=== PATIENT | male | born 1965 | race Caucasian/White ===

== ENCOUNTER 2022-02-08 12:46 | Day surgery (SDC) | payer MEDICAID ==
[~2022-02-08] VITALS: Ht 170.2 cm; Wt 86.0 kg
[2022-02-08] MEDS ORDERED: CIPROFLOXACIN 0.3% OPHTH SOLN 2.5ML ONE (12:51)
[2022-02-08] MEDS ORDERED: TETRACAINE 0.5% OPHTH DROPS 4ML ONE (12:51)
[2022-02-08] MEDS ORDERED: BALANCED SALT IRRIG SOLN 15ML ONE (12:51)
[2022-02-08] MEDS ORDERED: PREDNISOLONE ACETATE 1% OPHTH DROPS 5ML ONE (12:51)
[2022-02-08] MEDS ORDERED: NEO/POLYMYX B SULF/DEXAMETH OPHTH OINT 3.5GM ONE (12:51)
[2022-02-08] MEDS ORDERED: LIDOCAINE HCL 2%/EPINEPHRINE 1:100,000 20 ML VIAL INFIL ONE (12:51)
[2022-02-08] MEDS ORDERED: BUPIVACAINE HCL/PF 0.75% (7.5MG/ML) 10ML ONE (12:51)
[2022-02-08] MEDS ORDERED: ONDANSETRON HCL 4MG/2ML INJ IV STA (15:43)
[2022-02-08] MEDS ORDERED: MORPHINE SULFATE 4 MG/ML CPJ (NOT FOR IM USE) IV STA (15:43)
[2022-02-08] MEDS ORDERED: TETRACAINE 0.5% OPHTH DROPS 4ML RIGHTEYE ONE (15:45)
[2022-02-08] MEDS ORDERED: ACETAZOLAMIDE SODIUM 500MG/VIAL IV ONE (15:45)
[2022-02-08] MEDS ORDERED: SODIUM CHLORIDE 0.9% 1,000 ML IV ONE (15:45)
[2022-02-08 15:53] LABS: BASOPHILS % 0.8 % (0.0-2.0); EOSINOPHILS % 3.6 % (0.0-5.0); HEMATOCRIT. 42.4 % (42.0-52.0); HEMOGLOBIN. 14.4 g/dL (14.0-18.0); LYMPHOCYTES % 26.3 % (20.0-50.0); MEAN CORPUSCULAR HEMOGLOBIN 29.8 pg (28.0-32.0); MEAN CORPUSCULAR VOLUME 87.7 fL (80.0-94.0); MONOCYTES % 5.2 % (2.0-8.0); NEUTROPHILS % 64.1 % (40.0-76.0); PLATELET 339 x1000/uL (130-400); RED BLOOD CELL COUNT 4.84 mill/uL (4.7-6.1)
[2022-02-08 16:13] LABS: CHLORIDE 113 mEq/L (98-107)
[2022-02-08 17:21] VITALS: BP 148/83
[2022-02-08] MEDS ORDERED: TETRACAINE 0.5% OPHTH DROPS 4ML RIGHTEYE NR (17:30)
[2022-02-08] MEDS ORDERED: LIDOCAINE HCL 1% 20ML VIAL (Pyxis) INJ ONE (18:41)
[2022-02-08] MEDS ORDERED: PROPOFOL 200MG/20ML VIAL IV ONE (18:41)
[2022-02-08] MEDS ORDERED: MIDAZOLAM HCL 2 MG/2 ML VIAL ONE (18:42)
[2022-02-08] MEDS ORDERED: FENTANYL CITRATE/PF 50MCG/ML 2ML VIAL ONE (18:42)
[2022-02-08] MEDS ORDERED: HYDROMORPHONE HCL/PF 2MG/ML CPJ IV PRN (19:45)
[2022-02-08] MEDS ORDERED: MEPERIDINE HCL/PF 25MG/ML CPJ IV PRN (19:45)
[2022-02-08] MEDS ORDERED: ONDANSETRON HCL 4MG/2ML INJ IV PRN (19:45)
[2022-02-08] MEDS ORDERED: LABETALOL 5MG/ML SYR 20 MG/4 ML SYRINGE IV PRN (19:45)
[2022-02-08] MEDS ORDERED: TIMOLOL MALEATE 0.5% OPHTH DROPS 5ML RIGHTEYE SCH (21:00)
== END 2022-02-08 21:00 | disposition home or self-care (01) ==
LOC: ER 12:46 → EDBEDREQTM 15:50 → EDBEDREQ 15:50 → EDBEDREQSVC 15:50 → ER 18:15 → OR 18:40 → ENRESERV 20:06 → OR 21:00 → UNDOADMIN 02-09 04:58 → 6EST 02-09 04:58
PROVIDERS: ATTEND Ophthalmology
DX: E11.39 Type 2 diabetes mellitus with other diabetic ophthalmic complication (principal); H40.89 Other specified glaucoma; I10 Essential (primary) hypertension; Z79.84 Long term (current) use of oral hypoglycemic drugs; Z79.899 Other long term (current) drug therapy; Z98.890 Other specified postprocedural states; Z20.822 Contact with and (suspected) exposure to COVID-19
CPT/HCPCS: 36415; 66180; 80053; 85025; 87426; 93005; 99285; C9803; J1120; J2250; J2270; J2405; J2704; J3010; J3490; J7030; C1762; C1783

== ENCOUNTER 2022-05-31 12:32 | Day surgery (SDC) | payer MEDICAID, OTHER ==
[~2022-05-31] VITALS: Ht 172.7 cm; Wt 91.0 kg
[2022-05-31 13:57] LABS: BASOPHILS % 0.6 % (0.0-2.0); EOSINOPHILS % 4.4 % (0.0-5.0); HEMATOCRIT. 43.6 % (42.0-52.0); HEMOGLOBIN. 14.9 g/dL (14.0-18.0); LYMPHOCYTES % 33.8 % (20.0-50.0); MEAN CORPUSCULAR HEMOGLOBIN 30.4 pg (28.0-32.0); MEAN CORPUSCULAR VOLUME 89.1 fL (80.0-94.0); MEAN PLATELET VOLUME 8.7 fl (7.4-10.4); MONOCYTES % 9.2 % (2.0-8.0); PLATELET 221 x1000/uL (130-400); RED CELL DISTRIBUTION WIDTH 13.2 % (11.6-14.6)
[2022-05-31 14:04] LABS: CHLORIDE 106 mEq/L (98-107)
[2022-05-31 14:59] LABS: CLARITY URINE CLEAR (CLEAR); COLOR URINE YELLOW (YELLOW); KETONES URINE NEGATIVE (NEGATIVE); LEUKOCYTE ESTERASE URINE NEGATIVE (NEGATIVE); NITRITE URINE NEGATIVE (NEGATIVE); OCCULT BLOOD URINE TRACE (NEGATIVE); PH URINE 5.5 (4.5-8.0); PROTEIN URINE 3+ (NEGATIVE); SPECIFIC GRAVITY URINE 1.036 (1.005-1.030); UROBILINOGEN URINE 0.2 E.U./dL (0.2-1.0)
[2022-05-31] MEDS ORDERED: BALANCED SALT IRRIG SOLN COMB1 500ML OP NR (15:00)
[2022-05-31 15:42] VITALS: BP 139/74
[2022-05-31] MEDS ORDERED: PROPOFOL 200MG/20ML VIAL IV ONE (17:15)
[2022-05-31] MEDS ORDERED: MIDAZOLAM HCL 2 MG/2 ML VIAL ONE (17:21)
[2022-05-31] MEDS ORDERED: FENTANYL CITRATE/PF 50MCG/ML 2ML VIAL IV PRN (17:30)
[2022-05-31] MEDS ORDERED: FENTANYL CITRATE/PF 50MCG/ML 2ML VIAL ONE (17:32)
[2022-05-31] MEDS ORDERED: DEXAMETHASONE 4MG/ML 1ML VIAL ONE (17:48)
[2022-05-31] MEDS ORDERED: CEFAZOLIN SODIUM 1000MG/VIAL ONE (17:48)
[2022-05-31] MEDS ORDERED: HYDRALAZINE 20MG/ML VIAL ONE (17:48)
[2022-05-31] MEDS ORDERED: ONDANSETRON HCL 4MG/2ML INJ ONE (17:48)
[2022-05-31] MEDS ORDERED: TRIAMCINOLONE ACETONIDE 40MG/ML 1ML VIAL ONE (18:13)
== END 2022-05-31 19:50 | disposition home or self-care (01) ==
LOC: ER 12:55 → 6EST 16:03 → UNDOADMIN 16:03 → OR 17:14 → ENRESERV 20:17
PROVIDERS: ATTEND Ophthalmology
DX: T85.698A Other mechanical complication of other specified internal prosthetic devices, implants and grafts, initial encounter (principal); H53.8 Other visual disturbances; I10 Essential (primary) hypertension; E11.9 Type 2 diabetes mellitus without complications; Z79.84 Long term (current) use of oral hypoglycemic drugs; Z79.899 Other long term (current) drug therapy; Z98.890 Other specified postprocedural states; Z20.822 Contact with and (suspected) exposure to COVID-19; X58.XXXA Exposure to other specified factors, initial encounter; Y93.89 Activity, other specified; Y92.89 Other specified places as the place of occurrence of the external cause; Y99.8 Other external cause status
CPT/HCPCS: 36415; 66180; 71045; 80053; 81003; 85025; 86850; 86900; 86901; 87426; 93005; 99285; C9803; J0360; J0690; J1100; J2250; J2405; J2704; J3010; J3301; J7030; C1762

== ENCOUNTER 2022-08-19 13:32 | Day surgery (SDC) | payer MEDICAID, OTHER ==
[~2022-08-19] VITALS: Ht 170.2 cm; Wt 87.0 kg
[~2022-08-19 13:32] MED LIST: BALANCED SALT IRRIG SOLN 15ML ONE; BUPIVACAINE HCL/PF 0.75% (7.5MG/ML) 10ML ONE; CIPROFLOXACIN 0.3% OPHTH SOLN 2.5ML ONE; LIDOCAINE HCL/PF 2% 20 MG/ML 10ML VIAL ONE; NEO/POLYMYX B SULF/DEXAMETH OPHTH OINT 3.5GM ONE; PREDNISOLONE ACETATE 1% OPHTH DROPS 5ML ONE; TETRACAINE 0.5% OPHTH DROPS 4ML ONE
[2022-08-19 16:49] LABS: BASOPHILS % 0.6 % (0.0-2.0); EOSINOPHILS % 4.5 % (0.0-5.0); HEMATOCRIT. 48.2 % (42.0-52.0); HEMOGLOBIN. 15.9 g/dL (14.0-18.0); LYMPHOCYTES % 26.5 % (20.0-50.0); MEAN CORPUSCULAR HEMOGLOBIN 29.1 pg (28.0-32.0); MEAN CORPUSCULAR VOLUME 88.3 fL (80.0-94.0); MEAN PLATELET VOLUME 8.6 fl (7.4-10.4); MONOCYTES % 6.5 % (2.0-8.0); NEUTROPHILS % 61.9 % (40.0-76.0); PLATELET 281 x1000/uL (130-400); RED BLOOD CELL COUNT 5.45 mill/uL (4.7-6.1); RED CELL DISTRIBUTION WIDTH 13.5 % (11.6-14.6)
[2022-08-19 16:52] LABS: CHLORIDE 109 mEq/L (98-107)
[2022-08-19 17:11] LABS: INR 0.9; PARTIAL THROMBOPLASTIN TIME 28.9 sec (23.4-31.0); PROTHROMBIN TIME 10.1 sec (9.6-11.0)
[2022-08-19 18:41] VITALS: BP 163/89
[2022-08-19] MEDS ORDERED: FENTANYL CITRATE/PF 50MCG/ML 2ML VIAL ONE (19:44)
[2022-08-19] MEDS ORDERED: MIDAZOLAM HCL 2 MG/2 ML VIAL ONE (19:44)
[2022-08-19] MEDS ORDERED: LIDOCAINE HCL 1% 10 MG/ML 10ML VIAL ONE (19:44)
[2022-08-19] MEDS ORDERED: ONDANSETRON HCL 4MG/2ML INJ ONE (19:44)
[2022-08-19] MEDS ORDERED: ONDANSETRON HCL 4MG/2ML INJ IV PRN (20:15)
[2022-08-19] MEDS ORDERED: LABETALOL 5MG/ML SYR 20 MG/4 ML SYRINGE IV PRN (20:15)
[2022-08-19] MEDS ORDERED: HYDROMORPHONE HCL/PF 2MG/ML CPJ IV PRN (20:15)
[2022-08-19] MEDS ORDERED: MEPERIDINE HCL/PF 25MG/ML CPJ IV PRN (20:15)
== END 2022-08-19 22:30 | disposition home or self-care (01) ==
LOC: ER 13:32 → EDBEDREQTM 16:05 → EDBEDREQ 16:05 → ER 19:20 → OR 20:50 → CANBEDREQ 08-21 11:49
PROVIDERS: ATTEND Ophthalmology
DX: H40.10X0 Unspecified open-angle glaucoma, stage unspecified (principal); Z79.899 Other long term (current) drug therapy; Z98.890 Other specified postprocedural states
CPT/HCPCS: 36415; 66170; 66180; 80053; 85025; 85610; 85730; 86850; 86900; 86901; 93005; 99284; J2250; J2405; J3010; J3490

== ENCOUNTER 2022-09-16 13:36 | Inpatient (IN) | payer MEDICAID, OTHER ==
[~2022-09-16] VITALS: Ht 180.3 cm; Wt 88.5 kg
[2022-09-16] MEDS ORDERED: PILOCARPINE HCL 2% OPHTH DROPS 15ML RIGHTEYE SCH (14:00)
[2022-09-16] MEDS ORDERED: DORZOLAM/TIMOLOL 2.23/0.68% OPHTH DROPS 10ML RIGHTEYE SCH (14:00)
[2022-09-16] MEDS ORDERED: LATANOPROST 0.005% OPHTH DROPS 2.5ML RIGHTEYE SCH (14:00)
[2022-09-16] MEDS ORDERED: PREDNISOLONE ACETATE 1% OPHTH DROPS 5ML RIGHTEYE SCH (14:00)
[2022-09-16] MEDS ORDERED: ACETAZOLAMIDE SODIUM 500MG/VIAL IV ONE (14:00)
[2022-09-16] MEDS ORDERED: PILOCARPINE HCL 2% OPHTH DROPS 15ML BOTHEYE SCH (14:30)
[2022-09-16] MEDS ORDERED: LATANOPROST 0.005% OPHTH DROPS 2.5ML BOTHEYE SCH ×2 (14:30→21:00)
[2022-09-16] MEDS ORDERED: DORZOLAM/TIMOLOL 2.23/0.68% OPHTH DROPS 10ML BOTHEYE SCH (14:30)
[2022-09-16] MEDS: PREDNISOLONE ACETATE 1% OPHTH DROPS 5ML BOTHEYE SCH (15:04)
[2022-09-16] MEDS ORDERED: NALOXONE HCL 0.4MG/ML VIAL IV PRN (20:00)
[2022-09-16] MEDS ORDERED: HYDROCODONE/ACETAMINOPHEN 5/325MG TABLET PO PRN (20:00)
[2022-09-17 04:00] VITALS: BP 111/66
[2022-09-17 04:10] VITALS: BP 128/77
[2022-09-17] MEDS ORDERED: INSU100V36 SQ (04:17)
[2022-09-17] MEDS ORDERED: PRAV20TA57 PO (04:17)
[2022-09-17] MEDS ORDERED: TELM40TA7 PO (04:17)
[2022-09-17] MEDS ORDERED: EMPA1TAB9 PO (04:17)
[2022-09-17 08:00] VITALS: BP 109/72
[2022-09-17] MEDS: PREDNISOLONE ACETATE 1% OPHTH DROPS 5ML BOTHEYE SCH (08:50)
[2022-09-17 12:00] VITALS: BP 128/77
[2022-09-17 16:00] VITALS: BP 132/76
[2022-09-17 20:00] VITALS: BP 129/71
[2022-09-17] MEDS ORDERED: ACETAZOLAMIDE SODIUM 500MG/VIAL IV NR (20:00)
[2022-09-17] MEDS ORDERED: LATANOPROST 0.005% OPHTH DROPS 2.5ML BOTHEYE SCH (21:00)
[2022-09-17] MEDS: DORZOLAMIDE 2% OPHTH 10 ML BOTTLE BOTHEYE SCH (22:05)
[2022-09-17] MEDS: TIMOLOL MALEATE 0.5% OPHTH DROPS 5ML EACHEYE SCH (22:05)
[2022-09-17] MEDS: BRIMONIDINE 0.2% OPHTH DROPS 5ML BOTHEYE SCH (22:05)
[2022-09-17] MEDS: PILOCARPINE HCL 2% OPHTH DROPS 15ML BOTHEYE SCH (22:06)
[2022-09-17] MEDS: PREDNISOLONE ACETATE 1% OPHTH DROPS 5ML RIGHTEYE SCH (23:59)
[2022-09-18] VITALS: BP 118/66
[2022-09-18 04:00] VITALS: BP 114/70
[2022-09-18] MEDS: PREDNISOLONE ACETATE 1% OPHTH DROPS 5ML RIGHTEYE SCH ×2 (06:45→11:46)
[2022-09-18] MEDS: BRIMONIDINE 0.2% OPHTH DROPS 5ML BOTHEYE SCH (06:46)
[2022-09-18] MEDS: DORZOLAMIDE 2% OPHTH 10 ML BOTTLE BOTHEYE SCH (06:46)
[2022-09-18] MEDS: PILOCARPINE HCL 2% OPHTH DROPS 15ML BOTHEYE SCH (06:46)
[2022-09-18 07:46] LABS: BASOPHILS % 0.7 % (0.0-2.0); EOSINOPHILS % 4.3 % (0.0-5.0); HEMATOCRIT. 42.6 % (42.0-52.0); HEMOGLOBIN. 14.4 g/dL (14.0-18.0); LYMPHOCYTES % 33.4 % (20.0-50.0); MEAN CORPUSCULAR HEMOGLOBIN 29.5 pg (28.0-32.0); MEAN CORPUSCULAR VOLUME 87.5 fL (80.0-94.0); MEAN PLATELET VOLUME 7.5 fl (7.4-10.4); MONOCYTES % 9.4 % (2.0-8.0); NEUTROPHILS % 52.2 % (40.0-76.0); PLATELET 276 x1000/uL (130-400); RED BLOOD CELL COUNT 4.87 mill/uL (4.7-6.1); RED CELL DISTRIBUTION WIDTH 13.4 % (11.6-14.6)
[2022-09-18 08:00] VITALS: BP 116/63
[2022-09-18 08:15] LABS: CHLORIDE 112 mEq/L (98-107)
[2022-09-18] MEDS: TIMOLOL MALEATE 0.5% OPHTH DROPS 5ML EACHEYE SCH (08:15)
[2022-09-18] MEDS ORDERED: PREDNISOLONE ACETATE 1% OPHTH DROPS 5ML ONE (09:42)
[2022-09-18] MEDS ORDERED: NEO/POLYMYX B SULF/DEXAMETH OPHTH OINT 3.5GM ONE (09:42)
[2022-09-18] MEDS ORDERED: LIDOCAINE HCL/PF 2% 20 MG/ML 10ML VIAL ONE (09:42)
[2022-09-18] MEDS ORDERED: CIPROFLOXACIN 0.3% OPHTH SOLN 2.5ML ONE (09:42)
[2022-09-18] MEDS ORDERED: BUPIVACAINE HCL/PF 0.75% (7.5MG/ML) 10ML ONE (09:42)
[2022-09-18] MEDS ORDERED: TETRACAINE 0.5% OPHTH DROPS 4ML ONE (09:42)
[2022-09-18] MEDS ORDERED: BALANCED SALT IRRIG SOLN 15ML ONE (09:42)
[2022-09-18 12:00] VITALS: BP 120/38
[2022-09-18] MEDS ORDERED: MIDAZOLAM HCL 2 MG/2 ML VIAL ONE (14:42)
[2022-09-18] MEDS ORDERED: PROPOFOL 200MG/20ML VIAL IV ONE (14:42)
[2022-09-18] MEDS ORDERED: LIDOCAINE HCL 1% 10 MG/ML 10ML VIAL ONE (14:42)
[2022-09-18] MEDS ORDERED: FENTANYL CITRATE/PF 50MCG/ML 2ML VIAL ONE (14:42)
[2022-09-18] MEDS ORDERED: LABETALOL 5MG/ML SYR 20 MG/4 ML SYRINGE IV PRN (15:30)
[2022-09-18] MEDS ORDERED: HYDROMORPHONE HCL/PF 2MG/ML CPJ IV PRN (15:30)
[2022-09-18] MEDS ORDERED: MEPERIDINE HCL/PF 25MG/ML CPJ IV PRN (15:30)
[2022-09-18] MEDS ORDERED: ONDANSETRON HCL 4MG/2ML INJ IV PRN (15:30)
[2022-09-18] MEDS ORDERED: HYDROMORPHONE HCL/PF 2MG/ML CPJ ONE (15:42)
[2022-09-18 20:00] VITALS: BP 154/82
[2022-09-18 20:05] VITALS: BP 154/82
== END 2022-09-18 20:50 | disposition home or self-care (01) | DRG 73 ==
LOC: ER 13:36 → MICUSO 15:11 → EDBEDREQTM 15:14 → EDBEDREQ 15:14 → 6EST 09-17 03:42
PROVIDERS: ADMIT Internal Medicine; ATTEND Internal Medicine
PROC: 08123Z4 Bypass Right Anterior Chamber to Sclera, Percutaneous Approach (ICD-10-PCS; principal; 2022-09-16)
DX: E11.319 Type 2 diabetes mellitus with unspecified diabetic retinopathy without macular edema (principal); H21.01 Hyphema, right eye; H40.2290 Chronic angle-closure glaucoma, unspecified eye, stage unspecified; H40.51X0 Glaucoma secondary to other eye disorders, right eye, stage unspecified; H42 Glaucoma in diseases classified elsewhere; E11.39 Type 2 diabetes mellitus with other diabetic ophthalmic complication; Z20.822 Contact with and (suspected) exposure to COVID-19; Z79.4 Long term (current) use of insulin
CPT/HCPCS: 36415; 80048; 83036; 85025; 87426; 99285; J1120; J1170; J2250; J2704; J3010; J3490

== ENCOUNTER 2024-08-10 09:14 | Day surgery (SDC) | payer MEDICARE, MEDICAID ==
[~2024-08-10] VITALS: Ht 177.8 cm; Wt 85.0 kg
[~2024-08-10 09:14] MED LIST changes: -BALANCED SALT IRRIG SOLN 15ML ONE; -BUPIVACAINE HCL/PF 0.75% (7.5MG/ML) 10ML ONE; -CIPROFLOXACIN 0.3% OPHTH SOLN 2.5ML ONE; +EMPA1TAB9 PO; +INSU100V36 SQ; -LIDOCAINE HCL/PF 2% 20 MG/ML 10ML VIAL ONE; -NEO/POLYMYX B SULF/DEXAMETH OPHTH OINT 3.5GM ONE; +PRAV20TA57 PO; -PREDNISOLONE ACETATE 1% OPHTH DROPS 5ML ONE; +TELM40TA7 PO; -TETRACAINE 0.5% OPHTH DROPS 4ML ONE
[2024-08-10 09:32] VITALS: O2SAT 99
[2024-08-10 10:34] LABS: CHLORIDE 111 mEq/L (98-107); POTASSIUM 4.2 mEq/L (3.5-5.1); SODIUM 140 mEq/L (136-145)
[2024-08-10 10:35] LABS: CALCIUM 9.2 mg/dL (8.7-10.4); CARBON DIOXIDE 23 mEq/L (21-32)
[2024-08-10 10:40] LABS: GLUCOSE 130 mg/dL (70-105); UREA NITROGEN BLOOD 23 mg/dL (9-23)
[2024-08-10 10:46] LABS: BASOPHILS % 0.8 % (0.0-2.0); EOSINOPHILS % 5.3 % (0.0-5.0); HEMATOCRIT. 46.7 % (42.0-52.0); HEMOGLOBIN. 15.6 g/dL (14.0-18.0); LYMPHOCYTES % 23.1 % (20.0-50.0); MEAN CORPUSCULAR HEMOGLOBIN 31.1 pg (28.0-32.0); MEAN CORPUSCULAR HGB CONC 33.5 g/dL (31.0-37.0); MEAN PLATELET VOLUME 8.5 fl (7.4-10.4); MONOCYTES % 7.4 % (2.0-8.0); NEUTROPHILS % 63.4 % (40.0-76.0); PLATELET 284 x1000/uL (130-400); RED BLOOD CELL COUNT 5.02 mill/uL (4.7-6.1); RED CELL DISTRIBUTION WIDTH 12.9 % (11.6-14.6); WHITE BLOOD COUNT 6.4 x1000/uL (4.5-11.0)
[2024-08-10] MEDS ORDERED: ACETAZOLAMIDE SODIUM 500MG/VIAL IV NR (11:00)
[2024-08-10] MEDS ORDERED: BALANCED SALT IRRIG SOLN 15ML ONE (11:00)
[2024-08-10 11:22] VITALS: BP 145/74; PULSE 74; RESP 15; TEMP 36.8; O2SAT 98
[2024-08-10] MEDS ORDERED: MIDAZOLAM HCL 2 MG/2 ML VIAL ONE (13:31)
[2024-08-10] MEDS ORDERED: TRIAMCINOLONE ACETONIDE 40MG/ML 1ML VIAL ONE (13:36)
[2024-08-10] MEDS ORDERED: PROPOFOL 200MG/20ML VIAL IV ONE (13:46)
[2024-08-10] MEDS ORDERED: MEPERIDINE HCL/PF 25MG/ML CPJ IV PRN (14:30)
[2024-08-10] MEDS ORDERED: NALOXONE HCL 0.4MG/ML 1ML VIAL IV PRN (14:30)
[2024-08-10] MEDS ORDERED: ONDANSETRON HCL 4MG/2ML INJ IV PRN (14:30)
[2024-08-10] MEDS ORDERED: HYDROMORPHONE HCL/PF 1MG/ML INJ IV PRN (14:30)
[2024-08-10] MEDS ORDERED: LABETALOL 5MG/ML 4ML INJ IV PRN (14:30)
[2024-08-10] MEDS ORDERED: IPRATROPIUM/ALBUTEROL 0.5-3(2.5)MG/3ML NEB HHN PRN (23:00)
== END 2024-08-10 12:30 | disposition home or self-care (01) ==
LOC: ER 09:14 → OR 10:30 → ER 13:15
PROVIDERS: ATTEND Ophthalmology
DX: E11.39 Type 2 diabetes mellitus with other diabetic ophthalmic complication (principal); H40.10X0 Unspecified open-angle glaucoma, stage unspecified; E11.319 Type 2 diabetes mellitus with unspecified diabetic retinopathy without macular edema; I10 Essential (primary) hypertension; E78.00 Pure hypercholesterolemia, unspecified; Z79.4 Long term (current) use of insulin; Z79.899 Other long term (current) drug therapy; Z98.890 Other specified postprocedural states
CPT/HCPCS: 66180; 80048; 82962; 85025; 36415; C1783; J3490; J2003; J2250; J2704; J1120; J3301; 10060; 99283